=== PATIENT | male | born 1970 | race Caucasian/White ===

== ENCOUNTER 2017-10-06 18:45 | Emergency (ER) | payer BC ==
[2017-10-06 19:04] VITALS: TEMP 36.9; Ht 177.8 cm
[2017-10-06] MEDS ORDERED: METOCLOPRAMIDE HCL INJ 5 MG/ML 2 ML VIAL IV STA (20:12)
[2017-10-06] MEDS ORDERED: ACETAMINOPHEN 500 MG TAB PO STA (20:12)
[2017-10-06] MEDS ORDERED: KETOROLAC TROMETHAMINE 30 MG/ML VIAL IV STA (20:12)
[2017-10-06] MEDS ORDERED: DEXAMETHASONE INJ 10 MG in SYRINGE 0 ML IV STA (20:12)
[2017-10-06] MEDS ORDERED: MoRPHine SULFATE 10 MG/ML CARP/VIAL IV STA (20:12)
--- NOTE | 2017-10-06 20:21 | EMERGENCY ROOM VISIT NOTE ---
History Report prepared by Ritu: Kayla Chery Under the Supervision of: Dr. Jesús Stuart M.D. First contact with patient: 19:55 Chief Complaint: BACK PAIN Stated Complaint: BACK PAIN, VOMITING History of Present Illness The patient is a 47 year old white male with a past medical history of 5 back surgeries, appendectomy, and blebs who presents to the ED with a cc of constant lower back pain beginning today. The patient states that he has been vomiting today and it has caused his back pain to flare up again. Positive headache. Negative changes in bowel movements, urinary symptoms, groin pain, incontinence. Source of History: patient Onset: today Position: back (lower) Timing: constant Associated Symptoms: + headache, + vomiting, No urinary symptoms Note: Denies bowel changes. Review of Systems See HPI for pertinent positives and negatives. A total of ten systems were reviewed and were otherwise negative. Past Medical & Surgical Medical Problems: (1) Bleb Surgical Problems: (1) History of appendectomy (2) Previous back surgery Family History No pertinent family history stated. Social History Smoking Status: Current Some Day Smoker Housing Status: lives with family Current/Historical Medications Scheduled Famotidine (Pepcid), 40 MG PO QD Ondasetron Odt (Zofran Odt), 4 MG SL Q6H Prednisone (Prednisone), 50 MG PO DAILY Tramadol Hcl (Ultram), 50 MG PO Q8H Physical Exam Vital Signs Date Time Temp Pulse Resp B/P (MAP) Pulse Ox O2 Delivery O2 Flow Rate FiO2 10/06/17 21:25 96 18 189/124 97 Room Air 10/06/17 21:02 95 20 180/112 95 Room Air 10/06/17 20:35 88 20 183/126 98 Room Air 10/06/17 19:04 36.9 79 18 196/115 98 Room Air Physical Exam GENERAL: Awake, alert, well-appearing, NAD HENT: Normocephalic, atraumatic. EYES: Normal conjunctiva. Sclera non-icteric. NECK: Supple. No nuchal rigidity. FROM. RESPIRATORY: CTAB, no rhonchi, wheezing, crackles CARDIAC: RRR, no MRG ABDOMEN: Soft, NTND, BS+ MSK: No chest wall TTP, no LE edema. Worsening pain when legs are elevated, no sciatica with straight leg raise, positive garcía test bilaterally. Midline L spine TTP, no stepoff. NEURO: GCS 15, CN 2-12 intact, moves all 4s on command SKIN: No rash or jaundice noted. Medical Decision & Procedures Medications Administered Medications (Trade) Dose Ordered Sig/Christal Route Start Time Stop Time Status Last Admin Dose Admin Morphine Sulfate (MoRPHine SULFATE INJ) 6 mg ONE STAT IV 10/06/17 20:12 10/06/17 20:14 DC 10/06/17 20:12 6 MG Metoclopramide HCl (Reglan Inj) 10 mg NOW STAT IV 10/06/17 20:12 10/06/17 20:14 DC 10/06/17 20:30 10 MG Acetaminophen (Tylenol Tab) 1,000 mg NOW STAT PO 10/06/17 20:12 10/06/17 20:14 DC 10/06/17 20:30 1,000 MG Ketorolac Tromethamine (Toradol Inj) 30 mg NOW STAT IV 10/06/17 20:12 10/06/17 20:14 DC 10/06/17 20:29 30 MG Dexamethasone Sodium Phosphate (Dexamethasone Inj Pf) 10 mg STK-MED ONCE .ROUTE 10/06/17 20:24 10/06/17 20:25 DC 10/06/17 20:30 10 MG ED Course 1954: The patient was evaluated in room C12. A complete history and physical exam was performed. 2116: I reevaluated and updated the patient. He is feeling better. 2126: I reevaluated the patient. Discussed results and discharge instructions: He verbalized understanding and agreement. The patient is ready for discharge. Medical Decision Differential diagnosis: Etiologies such as musculoskeletal, disc herniation, fracture, aortic disease, metastatic disease, cord compression, discitis, infection, renal colic, gastrointestinal, acute exacerbation of chronic back pain, sciatica, cauda equina, as well as others were entertained. Patient was seen and evaluated the bedside. Patient is a 47-year-old is a prior history of multiple lumbar surgeries. Patient states that he was having a fair amount of back pain and was nauseated. He's had some vomiting. Patient denies any infectious symptoms. Patient does not have a history of IV drug abuse, steroids, nontender weight loss, or cancers. Patient denies any saddle anesthesia or bowel or bladder incontinence. He denies any bowel or bladder retention. Patient does have some lower lumbar pain. Patient denies any recent trauma does not take any blood thinning medications. Patient is neurovascularly intact distally. Patient was given medications and reevaluated. Patient was feeling much improved upon reevaluation. Given the patient had improved and did not have any traumatic injury even given his spinal history no imaging was obtained. Patient again was neurovascularly intact. Patient was given prescriptions for home. Patient was told to follow-up with spinal surgeon which she was agreeable to. Patient was given counseling on smoking cessation prior to discharge. Patient deemed suitable for outpatient follow-up and treatment. Patient was given strict follow-up, discharge, and return precautions. All questions were answered. Patient was deemed suitable for outpatient follow-up at this time. Patient agreed with the plan of care and was safely discharged home. Medication Reconcilliation Current Medication List: was personally reviewed by me Blood Pressure Screening Patient's blood pressure: Elevated blood pressure Blood pressure disposition: Elevated BP felt to be situational Impression Primary Impression: Lumbar back pain Additional Impression: Encounter for smoking cessation counseling Scribe Attestation The scribe's documentation has been prepared under my direction and personally reviewed by me in its entirety. I confirm that the note above accurately reflects all work, treatment, procedures, and medical decision making performed by me. Departure Information Dispostion Home / Self-Care Prescriptions Tramadol Hcl (ULTRAM) 50 Mg Tab 50 MG PO Q8H, #15 TAB PRN PAIN Prov: Jesús Stuart M.D. 10/06/17 Famotidine (Pepcid) 40 Mg Tab 40 MG PO QD for 30 Days, #30 TAB Prov: Jesús Stuart M.D. 10/06/17 Ondasetron Odt (ZOFRAN ODT) 4 Mg Tab 4 MG SL Q6H for Nausea, #6 TAB Prov: Jesús Stuart M.D. 10/06/17 Prednisone (PREDNISONE) 50 Mg Tab 50 MG PO DAILY for 4 Days, #4 TAB Prov: Jesús Stuart M.D. 10/06/17 Referrals No Doctor, Assigned (PCP) Patient Instructions Back Pain - [facility], Back Pain Relieve, Low Back Pain Self Care, [facility], [facility] Additional Instructions Please return to the emergency department if you have worsening or recurrent symptoms not amenable to at-home treatment. Please call for a follow-up appointment with her primary care physician. Please take your medications as prescribed. If you have other concerns and/or complaints please feel free to also call your primary care physician's office or return the ED for further evaluation, management, and treatment. You received narcotic or benzodiazepene medication while in the emergency room today. This is an addictive medication that may cause drowziness as well as constipation. Do not drive, operate heavy machinery, or drink alcohol under the influence of this medication. You may take 600 mg Ibuprofen every 6 hours as needed for pain with food for no more than 2 consecutive days. You may take tylenol 1000 mg every 6 hours as needed for pain. You may take motrin and tylenol separately or at the same time. When you take her steroids taken in the morning preferably with food. Please also consider taking a Zantac or Pepcid daily to help with acid suppression. He may also apply ice or moist heat to lower back. Please follow- up with your spinal surgeon. Take your medications as prescribed. You have been examined and treated today on an emergency basis only. This is not a substitute for, or an effort to provide, complete comprehensive medical care. It is impossible to recognize and treat all injuries or illnesses in a single emergency department visit. It is therefore important that you follow up closely with [facility], your PCP, and/or your specialist(s). Call as soon as possible for an appointment. Thank you for your time and consideration. I look forward to speaking with you again soon. Please don't hesitate to call us if you have any questions. Problem Qualifiers
[2017-10-06] MEDS ORDERED: DEXAMETHASONE **PF** INJ 10 MG/ML VIAL ONE (20:24)
[2017-10-06] MEDS ORDERED: MoRPHine SULFATE 4 MG/ML 1 ML CARP\\VIAL ONE (20:24)
[2017-10-06] MEDS ORDERED: MoRPHine SULFATE 2 MG/ML CARP ONE (20:25)
[2017-10-06] MEDS ORDERED: ONDA4TAB10 SL (21:20)
[2017-10-06] MEDS ORDERED: FAMO40TA6 PO (21:20)
[2017-10-06] MEDS ORDERED: PRED50TA PO (21:20)
[2017-10-06] MEDS ORDERED: TRAM-453 PO (21:20)
[2017-10-06 21:25] VITALS: BP 189/124; PULSE 96; O2SAT 97
== END 2017-10-06 21:28 | disposition home or self-care (01) ==
LOC: C.EDB 18:46 → C.EDC 21:28
DX: M54.5 Low back pain (principal); Z71.6 Tobacco abuse counseling; F17.200 Nicotine dependence, unspecified, uncomplicated; Z98.890 Other specified postprocedural states; Z90.89 Acquired absence of other organs